=== PATIENT | male | born 2000 | race Caucasian/White ===

== ENCOUNTER 2022-01-30 22:34 | Emergency (ER) | payer OTHER, SELFPAY ==
--- NOTE | ~2022-01-30 | XR_ITS ---
EXAMINATION: XR wrist RT min 3V DATE: 01/30/2022 22:54 INDICATION: Pain and swelling at the proximal carpal row post soccer injury to the right wrist. TECHNIQUE: Posteroanterior, ulnar deviation, oblique, and lateral views of the right wrist were obtai sal. COMPARISON: none FINDINGS: Alignment is normal. No fracture. Joint spaces are normal. Soft tissues are unremarkable. IMPRESSION: 1. Negative right wrist radiographs. Reviewed, dictated and finalized at location A.
[2022-01-30 22:37] VITALS: BP 138/84; PULSE 70; RESP 16; TEMP 36.8; O2SAT 98
--- NOTE | 2022-01-30 22:39 | ED.UPPEXIN ---
HPI - Extremity Injury (Upper) General Chief Complaint: Extremity Injury, Upper Stated Complaint: R WRIST INJURY Time Seen by Provider: 01/30/22 22:38 History of Present Illness HPI narrative: 21-year-old male presents the emergency room for evaluation of a right wrist pain. Patient states that he was playing soccer when he jumped in the air and fell on his wrist. Patient pain is worse with movement. No radiating pain. States the pain is dull and achy. Related Data Home Medications Medication Instructions Recorded Confirmed No Home Medications 01/30/22 Allergies Allergy/AdvReac Type Severity Reaction Status Date / Time No Known Allergies Allergy Verified 01/30/22 22:41 Review of Systems Review of Systems: CONSTITUTIONAL: Denies fever, chills, or sweats. EYES: Denies visual changes, redness, or discharge. ENT: Denies rhinorrhea, congestion, sore throat, or otalgia. CARDIOVASCULAR: Denies chest pain, palpitations, or edema. RESPIRATORY: Denies cough or dyspnea. GASTROINTESTINAL: Denies abdominal pain, nausea, vomiting, or diarrhea. GENITOURINARY: Denies dysuria or hematuria. SKIN: Denies rash or itching. MUSCULOSKELETAL: Reports right wrist pain NEUROLOGIC: Denies headache, numbness, dizziness, or weakness. PSYCHIATRIC: Denies anxiety or depression. Exam Narrative: GENERAL: Well-appearing, well-nourished, and in no acute distress. HEAD: Normocephalic, atraumatic. EYES: PERRLA and EOMI. CHEST: Clear to auscultation. No respiratory distress. No wheezes rales or rhonchi HEART: Regular rate and rhythm. No murmur heard. Normal peripheral pulses. EXTREMITIES: Normal range of motion. No edema. right wrist: Tenderness and soft tissue swelling to the dorsal surface, no snuffbox tenderness, neurovascular is intact distally, no obvious bony abnormality SKIN: Warm, dry, no rash. NEURO: No focal deficits. Alert and oriented x3. PSYCH: Normal mood and affect. Course Vital Signs Vital signs: Vital Signs Temperature 36.8 C 01/30/22 22:37 Pulse Rate 70 01/30/22 22:37 Respiratory Rate 16 01/30/22 22:37 Blood Pressure 138/84 01/30/22 22:37 Pulse Oximetry 98 01/30/22 22:37 Temperature 36.8 C 01/30/22 22:37 Pulse Rate 70 01/30/22 22:37 Respiratory Rate 16 01/30/22 22:37 Blood Pressure 138/84 01/30/22 22:37 Pulse Oximetry 98 01/30/22 22:37 MDM - Extremity Injury (Upper) Imaging Data My impression: No acute bony abnormality Discharge Plan Discharge Clinical Impression: Sprain and strain of wrist Patient Disposition: Home, Self-Care Condition: Stable Instructions: Antibiotic Form Additional Instructions: Keep splint on for comfort. May take Tylenol ibuprofen as needed for pain. Follow-up with orthopedics in the next 7 to 10 days if your pain continues. Prescriptions: No Action No Home Medications RF: 0 Follow-up/Referrals: PHYSICIAN NOT ON STAFF,NONSTAFF [Primary Care Provider] - Alirio Loza MD [Physician] - Time of Disposition: 23:14
== END 2022-01-30 23:37 | disposition home or self-care (01) ==
PROVIDERS: Emergency Provider Nurse Practitioner Family
DX: S63.501A Unspecified sprain of right wrist, initial encounter (principal); S66.911A Strain of unspecified muscle, fascia and tendon at wrist and hand level, right hand, initial encounter; W18.39XA Other fall on same level, initial encounter; Y93.66 Activity, soccer
CPT/HCPCS: 29125; 73110; 99283